=== PATIENT | male | born 1945 | race Asian ===

== ENCOUNTER 2019-05-23 08:45 | Emergency (ER) | payer OTHER ==
[~2019-05-23] VITALS: Ht 162.6 cm; Wt 74.8 kg
[~2019-05-23 08:45] MED LIST: HYDROCHLOROTH12.5 MG PO; LOSARTAN POTASS50 M1 PO; MELOXICAM15 M1 PO; TERAZOSIN5 MG PO; ZETIA10 M1 PO
[2019-05-23 08:53] VITALS: Ht 162.6 cm; Wt 74.8 kg
[2019-05-23 09:33] LABS: CALCIUM 8.9 mg/dL (8.5-10.1); CHLORIDE SERUM 103 mmol/L (98-107); CREATININE SERUM 1.2 mg/dL (0.7-1.3); GLUCOSE SERUM 108 mg/dL (74-106); POTASSIUM SERUM 3.4 mmol/L (3.5-5.1); SODIUM SERUM 143 mmol/L (136-145)
[2019-05-23 09:44] LABS: BASOPHIL % 0.2 % (0-2); PLATELET COUNT 190 x10^3mcL (130-400); RED CELL DISTRIBUTION WIDTH 13.9 % (11.5-14.5)
[2019-05-23 12:03] VITALS: BP 140/67
== END 2019-05-23 12:03 | disposition home or self-care (01) ==
LOC: ED 08:45
PROVIDERS: Emergency Medicine
DX: J40 Bronchitis, not specified as acute or chronic (principal); I12.9 Hypertensive chronic kidney disease with stage 1 through stage 4 chronic kidney disease, or unspecified chronic kidney disease; N18.9 Chronic kidney disease, unspecified
CPT/HCPCS: 36415; 83880; 87804; J7512